=== PATIENT | male | born 1960 | race Caucasian/White ===

== ENCOUNTER 2021-04-21 13:50 | Emergency (ER) | payer OTHER ==
[~2021-04-21] VITALS: Ht 175.3 cm; Wt 59.9 kg
[2021-04-21] MEDS ORDERED: ZESTRIL10 M1 (15:05)
== END 2021-04-21 18:56 | disposition home or self-care (01) ==
LOC: ER 13:50
DX: G62.89 Other specified polyneuropathies (principal)